=== PATIENT | male | born 1950 | race Caucasian/White ===

== ENCOUNTER 2020-02-04 14:08 | Day surgery (SDC) | payer MEDICARE ==
[~2020-02-04] VITALS: Ht 172.7 cm; Wt 79.0 kg
[2020-02-04] VITALS (10 sets, daily range): BP systolic 122–150; BP diastolic 73–95; PULSE 71–112; TEMP 97.8–99
[2020-02-04] MEDS ORDERED: BENICAR40 MG PO (14:56)
[2020-02-04] MEDS ORDERED: LIPITOR 10MG10 MG PO (14:56)
[2020-02-04] MEDS ORDERED: ADVIL200 MG PO (14:57)
[2020-02-04] MEDS ORDERED: FLOMAX 0.40.4 MG/CAP PO (14:57)
--- NOTE | 2020-02-04 15:01 | NUR ---
TO RM 7 AT 1420- CALL LIGHT IN REACH
--- NOTE | 2020-02-04 19:45 | NUR ---
REPORT RECEIVED FROM PACU NURSE, JONATHON. PATIENT ADMIT TO ROOM 341 POST OP VIA HOSP BED WITH CBI RUNNING/COLLAZO IN PLACE.
--- NOTE | 2020-02-04 20:11 | NUR ---
PATIENT DENIES CHEST PAIN/SHORTNESS OF BREATH/NAUSEA. COLOSTOMY IN PLACE TO R ABD, OBSERVED GAS PASSED THROUGH STOMA, OBSERVED PARTIALLY USED B&O SUPP IN COLOSTOMY BAG. URINE DRAINING PINK, CBI AT FAST RATE, NO CLOTS OBSERVED. SPIKED #3 CBI BAG.
[2020-02-05 00:27] VITALS: BP 126/76; PULSE 98; TEMP 98.2
[2020-02-05 01:20] VITALS: BP 150/92; PULSE 101; TEMP 97.8
[2020-02-05 04:05] VITALS: BP 121/61; PULSE 86; TEMP 98
--- NOTE | 2020-02-05 05:29 | NUR ---
SLEEPING, DOES NOT WAKEN WHEN DOOR TO ROOM IS OPENED BY STAFF. OBSERVED BREATHING NONLABORED AND EVEN. IV FLUIDS INFUSING WITH NO PROBLEMS. CBI CONTINUES AT MODERATELY RAPID RATE WITH COLLAZO OUTPUT CLEAR TO PALE YELLOW IN COLOR. OBSERVED OCCASIONAL SMALL RED CLOT IN TUBING OR WHEN DD BAG WAS EMPTIED. WITH ATTEMPTS TO SLOW CBI RATE DOWN, PATIENT WOULD HAVE C/O BURNING AND SMALL AMOUNT OF BLEEDING AROUND CATHETER.
--- NOTE | 2020-02-05 06:08 | NUR ---
PATIENT DANGLING AT SIDE OF BED, DENIES C/O DIZZINESS, OBSERVED CATHETER DRAINING OUTPUT FROM CLEAR TO LIGHT PINK AFTER PATIENT REPOSITIONED SELF TO SIT AT SIDE OF BED.
--- NOTE | 2020-02-05 07:00 | NUR ---
CBI clamped at this time.
--- NOTE | 2020-02-05 07:06 | NUR ---
Change of shift report given to day shift nursePriti.
--- NOTE | 2020-02-05 08:30 | NUR ---
Patient alert and oriented, answers questions appropriately. See assessment. Fowler catheter patient and draining clear yellow urine. Catheter care completed. Post op education reviewed with patient. No c/o at this time.
[2020-02-05 09:17] VITALS: BP 121/69; PULSE 88; TEMP 98.6
--- NOTE | 2020-02-05 10:42 | NUR ---
Initial visit; Patient thanked Obstetrics Gynecology Physician for looking in on him, listening and offering prayer and God's blessings.
--- NOTE | 2020-02-05 11:26 | NUR ---
Prime and pull urban catheter completed per drs order.
[2020-02-05 11:40] VITALS: BP 143/83; PULSE 74; TEMP 98.4
--- NOTE | 2020-02-05 13:58 | NUR ---
Wafer Mounter met with patient to discuss discharge planning. Patient lives alone in [place] and sees Dr. Rojas for primary care. Patient obtains medications from [facility] with no difficulties. Patient uses a blood pressure monitor at home and no other DME. Patient is normally independent with ADLS. Patient reports he has DPOA-HC completed which designates his brothers Harman (ph#[phone]) and Sera. Patient plans to return home at discharge. OLGA contacted Dr. Rojas' office and requested copy of DPOA-HC and Living Will. Pediatric Allergist faxed over copy and OLGA confirmed that patient's brothers were designated. OLGA placed copies on patient's chart. SW will continue to follow.
--- NOTE | 2020-02-05 14:30 | NUR ---
Discharge instructions reviewed with patient, verbalized understanding. Discharged via wheelchair to auto/home with friend at 1432.
== END 2020-02-05 13:25 | disposition home or self-care (01) ==
LOC: SDCO 14:08 → SURG 19:43 → SDCO 02-05 13:25 → SURG 02-05 13:25
DX: N21.0 Calculus in bladder (principal); E78.00 Pure hypercholesterolemia, unspecified; I10 Essential (primary) hypertension; K50.90 Crohn's disease, unspecified, without complications; Z90.49 Acquired absence of other specified parts of digestive tract
CPT/HCPCS: C1769; J0690; J2704; J3010; J3480; J7120

== ENCOUNTER 2020-05-28 05:23 | Day surgery (SDC) | payer MEDICARE, OTHER ==
[2020-05-28] VITALS (12 sets, daily range): BP systolic 105–159; BP diastolic 60–85; PULSE 59–106; TEMP 97–98.6
[~2020-05-28] VITALS: Ht 172.7 cm; Wt 88.5 kg
[~2020-05-28 05:23] MED LIST: ADVIL200 MG PO; BENICAR40 MG PO; FLOMAX 0.40.4 MG/CAP PO; LIPITOR 10MG10 MG PO
--- NOTE | 2020-05-28 09:10 | NUR ---
Patient to room via bed from PACU. Alert and oriented x4. Denies pain at this time. Fowler to dependent drainage with clear light pink urine in tubing and bag. CBI at medium flow. Patient is unable to move legs or identify areas touched on lower extremities. Reassure patient that this is normal at this time. Willards to room.
[2020-05-28] MEDS ORDERED: COZAAR100 MG PO (09:14)
--- NOTE | 2020-05-28 10:51 | NUR ---
Initial visit; Patient recoverying from surgical procedure. Agricultural Researcher offered encouragement, God's blessings and a thorough and rapid recovery.
--- NOTE | 2020-05-28 11:22 | NUR ---
Lying in bed with eyes closed. Opens eyes when enter room. Denies pain. Feels like he can wiggle his toes a little bit at this time, stil lack of feeling in lower extremities. CBI infusing at fast rate. Urine dark pink in color in urban bag. Patient denies needs at this time.
--- NOTE | 2020-05-28 12:41 | NUR ---
Sitting up in bed. Able to wiggle toes and identifies when bottom of feet are touched. Legs still feel heavy to lift though. Clear liquid lunch arrives at this time. Patient assisted to upright position in bed. Denies additional needs.
--- NOTE | 2020-05-28 15:12 | NUR ---
Lying in bed with eyes open. Denies pain. Is able to lift legs, still feel a little bit heavy. Fowler still to dependent drainage wtih dark pink drainage in bag, CBI at medium flow. Colostomy bag emptied at this time. Patient denies additional needs or concerns.
--- NOTE | 2020-05-28 17:37 | NUR ---
Sitting up in bed with eyes open. Denies pain. Says that he is doing okay. Has ordered dinner. CBI continues to infuse at medium pace, drainage in bag darker pink in color. Denies additional needs or concerns at this time.
--- NOTE | 2020-05-28 19:15 | NUR ---
Patient assessed at this time. Alert and oriented x 4, and able to make needs known. Denies having pain and discomfort at this time. Peripheral IV to left forearm with fluids running per orders. Site without redness, warmth, swelling, and pain. Denies having SOB and dyspnea. LS CTA. Respirations even and unlabored. HRR. Capillary refill less than 3 seconds. Non-tenting skin turgor. BSAx4. Abdomen soft and non-tender. Colostomy in place to right side of abdomen. Declined colace tonight due to loose stools. Indwelling urban catheter in place, with clear yellow urine via dependent drainage. Patient has continuous bladder irrigation running at a slow rate at this time. During catheter care, blood noted around penis. Pericare and catheter care provided. No further bleeding noted. Ointments applied per orders. 1+ edema BLE. SCDs on. Voices no questions, needs, or concerns at this time. Resting in bed with call light wihtin reach.
[2020-05-29 03:37] VITALS: BP 159/67; PULSE 75; TEMP 97.9
--- NOTE | 2020-05-29 05:16 | NUR ---
Johanna on continuous bladder irrigation. Running slowly with clear yellow urine output. After calculations, patient had 2000 mls of urine output this shift. Denies having pain and discomfort. Voices no questions, needs, or concerns at this time. Patient resting in bed with call light within reach.
[2020-05-29 07:28] VITALS: BP 131/81; PULSE 92; TEMP 98.2
--- NOTE | 2020-05-29 07:32 | NUR ---
Sitting up in bed with eyes open. Alert and oriented x4. Minimal pain, has some burning in penis occasionally. Fowler to dependent drainage with clear yellow pink urine noted in bag, CBI infusing at slow rate. Discuss prime and pull process along with six cup routine once we receive orders. Assist in ordering breakfast at this time. Patient denies additional needs.
--- NOTE | 2020-05-29 08:00 | NUR ---
Bed bath and cath care performed. Patient assisted up to recliner to get ready for breakfast. Gait steady. Patient says "I am not ready to run any marathons yet". Explain we will walk more later. Enc patient to drink lots of water. Patient denies additional needs.
--- NOTE | 2020-05-29 08:59 | NUR ---
Patient ambulating in halls with standby assist of one. Gait steady.
--- NOTE | 2020-05-29 09:08 | NUR ---
OLGA met with the patient to discuss discharge plan. The patient lives alone in [place]. He reports independence with ADLs and does not have any DME. The patient's PCP Dr. Paolo Rojas and he receives his medications from [facility] and his ostomy supplies from [facility]. The patient has a General DPOA and Living Will in [facility]. The patient reports that he also has a DPOA-HC and that Dr. Rhodes's office should have a copy of it. He states that his DPOA-HC is his brother, Sera (ph#[phone]). Sera lives in [place]. OLGA contacted Casey at [facility] to inquire if they do have a copy. Casey reports that they do and she can fax the DPOA-HC to the surgical unit. The patient plans to return home upon discharge. He states that his brother, Sera, will be transporting him home. No additional needs at this time.
--- NOTE | 2020-05-29 10:13 | NUR ---
Dr. Rivero calls for update on patient. Orders receive to prime and pull catheter and start six cup routine. Discuss again with the patient the process. Urinal and water provided to the patient. Instill approx 250mL CBI into bladder then clamp. Pericare/cath care provided. Remove 25mL saline from catheter balloon. Catheter pulled at this time with all intact. Pericare provided again. Colostomy bag drained as well. Encourage patient to let us know when he urinates so that we can place the urine in the cups. Patient sitting up in recliner. Denies additional needs.
--- NOTE | 2020-05-29 10:32 | NUR ---
OLGA received the patient's General DPOA and Living Will, via fax from [employer]. There is no DPOA-HC. OLGA met with the patient to inform. The patient was interested in getting a DPOA-HC completed while here. OLGA provided the form. The patient designated his brother, Sera, and his other brother, Harman, as the alternate. OLGA and security operations center analyst, Orquidea, witnessed the patient's signature. OLGA provided the patient with the original and some copies. OLGA placed a copy in the patient's chart.
[2020-05-29 11:40] VITALS: BP 145/71; PULSE 75; TEMP 98
--- NOTE | 2020-05-29 11:49 | NUR ---
Patient up walking in room. Has been able to have multiple voids but all were in the urinal. Urine is medium red in color, no clots noted. Patient will continue to drink water and will let us know when he urinates next. Declines ordering lunch as he says that he does not normally eat lunch. No further needs at this time.
--- NOTE | 2020-05-29 13:50 | NUR ---
Patient sitting up in chair. Voiding light pink urine, no clots. Patient's brother is on his way to pick him up. Deneis pain. Review discharge instructions with the patient. Denies questions, verbalizes understanding, signs discharge paperwork. Discharge packet provided to the patient. Patient will get dressed at this time and when his brother arrives he will let staff know so that he can be assisted out. Denies additional needs at this time.
--- NOTE | 2020-05-29 14:42 | NUR ---
Patient calls that his brother is here to take him home. Patient assisted out to POV via wheelchair by VANITA Cardoso, with all personal belongings.
== END 2020-05-29 14:42 | disposition home or self-care (01) ==
LOC: SDCO 05:23 → SURG 09:05 → SDCO 05-29 14:42
DX: N40.1 Benign prostatic hyperplasia with lower urinary tract symptoms (principal); R35.0 Frequency of micturition; R39.12 Poor urinary stream; E78.00 Pure hypercholesterolemia, unspecified; I10 Essential (primary) hypertension; Z90.49 Acquired absence of other specified parts of digestive tract
CPT/HCPCS: OP; C1769; J0690; J2250; J2704; J3010; J3480; J7120; Q9967

== ENCOUNTER → 2023-12-15 | Outpatient (CLI) | payer BC ==
[~2023-12-15] MED LIST changes: +COZAAR100 MG PO
== END ==
LOC: COL.RAD 15:17
DX: N40.0 Benign prostatic hyperplasia without lower urinary tract symptoms (principal); N18.32 Chronic kidney disease, stage 3b